=== PATIENT | female | born 1970 | race Caucasian/White ===

== ENCOUNTER 2022-02-18 10:56 | Observation (INO) | payer OTHER ==
[~2022-02-18] VITALS: Ht 167.6 cm; Wt 67.6 kg
[2022-02-18 11:16] LABS: BASOPHILS % 0.5 % (0.0-1.0); EOSINOPHILS # (AUTO) 0.1 (0.0-0.4); EOSINOPHILS % 0.9 % (0.0-6.0); HEMATOCRIT 48.3 % (34.2-44.1); HEMOGLOBIN 15.5 g/dL (12.0-16.0); LYMPHOCYTES # (AUTO) 2.1 (1.0-3.2); MEAN CORPUSCULAR HEMOGLOBIN 31.1 pg (28-32); MEAN CORPUSCULAR HGB CONC 32.1 g/dL (31-35); MEAN CORPUSCULAR VOLUME 96.8 fL (81-99); MONOCYTES # (AUTO) 0.4 (0.2-0.8); MONOCYTES % 5.7 % (4.4-11.3); NEUTROPHILS % 65.6 % (38.7-80.0); PLATELET COUNT 288 x10e3/uL (140-360); RED BLOOD COUNT 4.99 x10e6/uL (3.6-5.1); RED CELL DISTRIBUTION WIDTH 13.2 % (11.7-14.4)
[2022-02-18 11:25] LABS: INR 0.93; PROTHROMBIN TIME 13.3 seconds (11.9-14.5)
[2022-02-18 11:26] LABS: PARTIAL THROMBOPLASTIN TIME 28.4 seconds (23.8-35.5)
[2022-02-18 11:35] LABS: ALBUMIN 4.1 g/dL (3.5-5.0); ALBUMIN/GLOBULIN RATIO 1.4 (0.8-2.0); ANION GAP 14.9 mmol/L (8-16); CREATININE, SERUM 0.8 mg/dL (0.57-1.11); POTASSIUM 3.9 mmol/L (3.5-5.1)
[2022-02-18 11:41] LABS: CREATINE KINASE MB 3.1 ng/mL (0-5.0)
[2022-02-18] MEDS ORDERED: ASPIRIN 81 MG CHEW TAB PO STA (12:19)
[2022-02-18] MEDS: SODIUM CHLORIDE 0.9% 1000ML 1,000 ML IV SCH ×2 (12:47→19:52)
[2022-02-18 13:48] VITALS: BP 123/73
[2022-02-18 13:49] VITALS: BP 123/73
[2022-02-18 14:03] VITALS: BP 123/73
[2022-02-18] MEDS: ONDANSETRON HCL INJ 2MG/ML 2ML 2 MG/ML VIAL IV PRN ×2 (14:20→19:49)
[2022-02-18] MEDS: Morphine 4mg INJECTION 4 MG/ML INJ IV PRN ×2 (14:21→19:49)
[2022-02-18 16:16] VITALS: BP 97/71
[2022-02-18 19:50] LABS: CREATINE KINASE MB 2.5 ng/mL (0-5.0)
[2022-02-18 20:00] VITALS: BP 96/61
[2022-02-18 20:10] VITALS: BP 97/71
[2022-02-18] MEDS ORDERED: GUAIFENESIN/DEXTROMETHORPHAN LIQD 5 ML UDC PO PRN (22:15)
[2022-02-18] MEDS ORDERED: TRAMADOL/APAP 37.5MG-325MG TAB PO PRN (22:15)
[2022-02-18] MEDS ORDERED: HYDRALAZINE HCL 20 MG/ML VIAL IV PRN (22:15)
[2022-02-18] MEDS ORDERED: MELATONIN 3 MG TAB PO PRN (22:15)
[2022-02-18] MEDS ORDERED: DOCUSATE SODIUM 100 MG CAP PO PRN (22:15)
[2022-02-18] MEDS ORDERED: MAGNESIUM/ALUMINUM/SIMETHICONE 30 ML UDC PO PRN (22:15)
[2022-02-18] MEDS ORDERED: ACETAMINOPHEN 325 MG TAB PO PRN (22:15)
[2022-02-19] VITALS (8 sets, daily range): BP systolic 84–101; BP diastolic 58–74
[2022-02-19] MEDS: ONDANSETRON HCL INJ 2MG/ML 2ML 2 MG/ML VIAL IV PRN ×3 (01:57→18:47)
[2022-02-19] MEDS: Morphine 2mg Syringe 2 MG/ML SYR IV PRN ×3 (01:58→18:47)
[2022-02-19] MEDS: SODIUM CHLORIDE 0.9% 1000ML 1,000 ML IV SCH ×2 (05:25→13:46)
[2022-02-19 06:07] LABS: BASOPHILS % 0.5 % (0.0-1.0); EOSINOPHILS # (AUTO) 0.1 (0.0-0.4); EOSINOPHILS % 1.5 % (0.0-6.0); HEMATOCRIT 38.9 % (34.2-44.1); LYMPHOCYTES # (AUTO) 2.8 (1.0-3.2); LYMPHOCYTES % 43.3 % (18.0-39.1); MEAN CORPUSCULAR HEMOGLOBIN 31.3 pg (28-32); MEAN CORPUSCULAR HGB CONC 33.4 g/dL (31-35); MEAN CORPUSCULAR VOLUME 93.7 fL (81-99); MONOCYTES # (AUTO) 0.6 (0.2-0.8); MONOCYTES % 8.4 % (4.4-11.3); PLATELET COUNT 248 x10e3/uL (140-360); RED BLOOD COUNT 4.15 x10e6/uL (3.6-5.1); RED CELL DISTRIBUTION WIDTH 13.5 % (11.7-14.4)
[2022-02-19 06:31] LABS: ALBUMIN 3.3 g/dL (3.5-5.0); ALBUMIN/GLOBULIN RATIO 1.4 (0.8-2.0); ANION GAP 10.5 mmol/L (8-16); CALCIUM 7.8 mg/dL (8.4-10.2); CREATININE, SERUM 0.72 mg/dL (0.57-1.11); POTASSIUM 4.5 mmol/L (3.5-5.1)
[2022-02-19 06:32] LABS: CREATINE KINASE MB 1.8 ng/mL (0-5.0)
[2022-02-19 06:50] LABS: CHOL/HDL RATIO 3.1 (3.0-3.6)
[2022-02-19 07:11] LABS: THYROID STIMULATING HORMONE 1.859 uIU/mL (0.350-4.940)
[2022-02-19] MEDS: ASPIRIN 81 MG ENTERIC COATED PO SCH (08:12)
[2022-02-19] MEDS: MULTIVITAMINS/MINERALS TAB PO SCH (08:12)
[2022-02-19] MEDS ORDERED: ASPIRIN 81 MG ENTERIC COATED PO SCH (09:00)
[2022-02-19 14:31] LABS: CREATINE KINASE MB 1.9 ng/mL (0-5.0)
[2022-02-19] MEDS: HYDROMORPHONE 1MG/1ML INJ IV PRN (21:31)
[2022-02-20] MEDS: HYDROMORPHONE 1MG/1ML INJ IV PRN (00:32)
[2022-02-20 00:57] VITALS: BP 109/59
[2022-02-20] MEDS: SODIUM CHLORIDE 0.9% 1000ML 1,000 ML IV SCH (03:14)
[2022-02-20 04:39] VITALS: BP 85/55
[2022-02-20 08:00] VITALS: BP 86/57
[2022-02-20 08:19] VITALS: BP 86/57
[2022-02-20] MEDS: ASPIRIN 81 MG ENTERIC COATED PO SCH (09:00)
[2022-02-20] MEDS: MULTIVITAMINS/MINERALS TAB PO SCH (09:27)
[2022-02-20 12:25] VITALS: BP 111/71
[2022-02-20 17:28] VITALS: BP 118/81
[2022-02-20] MEDS ORDERED: MOTRIN200 MG PO (18:27)
[2022-02-21] MEDS ORDERED: METOPROLOL SUCCINATE 25 MG TAB XL PO SCH (09:00)
== END 2022-02-20 19:33 | disposition home or self-care (01) ==
LOC: ER 10:59 → ERHOLD 12:31 → MED/SURG3 13:32
PROVIDERS: ADMIT Internal Medicine; ATTEND Internal Medicine
DX: M47.22 Other spondylosis with radiculopathy, cervical region (principal); M47.26 Other spondylosis with radiculopathy, lumbar region; M48.061 Spinal stenosis, lumbar region without neurogenic claudication; M48.02 Spinal stenosis, cervical region; R07.89 Other chest pain; R20.0 Anesthesia of skin; K21.9 Gastro-esophageal reflux disease without esophagitis; I25.10 Atherosclerotic heart disease of native coronary artery without angina pectoris; F17.210 Nicotine dependence, cigarettes, uncomplicated; R94.31 Abnormal electrocardiogram [ECG] [EKG]; Z82.49 Family history of ischemic heart disease and other diseases of the circulatory system; Z20.822 Contact with and (suspected) exposure to COVID-19
CPT/HCPCS: 36415 ×2; 70450; 70551; 71045 ×2; 72141; 72148; 80053 ×2; 80061; 82550 ×2; 82553 ×2; 84443; 84484 ×2; 85025 ×2; 85610; 85730; 93005; 93017; 93880; 94799 ×2; 99284; G0378 ×3; J1170 ×2; J2270 ×2; J2405 ×2; J7030 ×3; U0002